=== PATIENT | female | born 1960 | race Caucasian/White ===

== ENCOUNTER 2017-08-22 14:37 | Outpatient (CLI) | payer BC ==
--- NOTE | 2017-08-22 16:01 | MRI ---
MRI LUMBAR SPINE WITHOUT CONTRAST: Date: 08/22/17 HISTORY: M48.061, degenerative lumbar spine stenosis. COMPARISON: None. FINDINGS: The kidneys are without hydronephrosis. The aortic contour is nonaneurysmal. Small retroperitoneal an d periaortic lymph nodes. Mild lower lumbar spine and paraspinal muscle atrophy at L4-5 and L5-S1. There are Modic Type II end plate changes at L1-2. Conus medullaris terminates at inferior L1 end césar te. There is increased posterior epidural fat narrowing the spinal canal. Levels are as follows: T12-L1: Mild circumferential disc space height loss. Mild facet arthropathy. No significant neural foraminal or spinal canal narrowing. Spinal canal measures 13.0 mm. L1-2: Moderate degenerative disc space height loss. Low grade circumferential disc bulge and disc osteophyt e complex. Spinal canal measures 9.0 mm. No significant neural foraminal narrowing. L2-3: There is mild disc desiccation. Circumferential disc bulge. Mild facet arthrosis. Increased posterior epidural fat. Spinal canal narrowed to approximately 8.0 mm. No significant neural foraminal narrowi ng. L3-4: Normal disc hydration. Mild facet arthropathy. Small left facet synovial cyst. The spinal canal measures approximately 6.0 mm, narrowed and predominantly due to increased posterior epidural fat. L4-5: Circumferential posterior disc osteophyte complex. Abnormal increased epidural fat. Moderate facet ar throsis with effusions. The spinal canal narrowed by 6.0 mm. There is moderate bilateral neural arabella inal narrowing. L5-S1: Abnormal increased anterior and posterior epidural fat. This narrows the spinal canal to approximatel y 6.0 mm. Disc is unremarkable. IMPRESSION: Multilevel spondylosis as described above with multilevel spinal canal narrowing, as well as narrowin g of the neural foramina at L4-5. There is a majority of narrowing due to increased epidural fat. POS: [facility]
== END 2017-08-22 14:38 | disposition home or self-care (01) ==
LOC: TBSIIMAG 14:37
PROVIDERS: ATTEND Neurological Surgery
DX: M47.12 Other spondylosis with myelopathy, cervical region (principal); M48.061 Spinal stenosis, lumbar region without neurogenic claudication; M99.83 Other biomechanical lesions of lumbar region
CPT/HCPCS: 72141; 72148

== ENCOUNTER 2017-09-08 16:05 | Outpatient (CLI) | payer BC ==
--- NOTE | 2017-09-08 22:40 | MRI ---
MRI OF THE CERVICAL SPINE WITHOUT CONTRAST: 09/08/17 COMPARISON: None. HISTORY: Cervical spondylosis and neck pain. TECHNIQUE: Multiplanar and multisequence MR images were obtained of the cervical spine without contrast. FINDINGS: Generalized disc desiccation is seen. Mild end plate degenerative changes are seen in the lower cervi genet spine, most prominent in the superior end plate of C7. The visualized cord demonstrates normal si gnal throughout. The craniocervical junction is unremarkable. The prevertebral and paraspinal soft ti ssues are unremarkable. C2-3: Unremarkable. C3-4: Unremarkable. C4-5: A small disc osteophyte complex is seen. Mild bilateral posterior facet arthrosis. Mild bilater al neural foraminal stenosis. Mild central canal stenosis. C5-6: A small disc osteophyte complex is seen. Mild bilateral posterior facet arthrosis. Mild right a nd moderate left neural foraminal stenosis. Mild central canal stenosis. C6-7: A small disc osteophyte complex is seen. No posterior facet arthrosis. Mild central canal steno sis. Mild bilateral neural foraminal stenosis. C7-T1: Unremarkable. IMPRESSION: Degenerative changes of the cervical spine as above. POS: [facility]
== END 2017-09-08 16:06 | disposition home or self-care (01) ==
LOC: TBSIIMAG 16:05
PROVIDERS: ATTEND Neurological Surgery
DX: M47.892 Other spondylosis, cervical region (principal)
CPT/HCPCS: 72141

== ENCOUNTER 2018-08-11 13:07 | Outpatient (CLI) | payer BC ==
--- NOTE | 2018-08-11 15:55 | MRI ---
MRI CERVICAL SPINE WITHOUT CONTRAST: HISTORY: Cervical stenosis. Right arm, shoulder, and neck pain. COMPARISON: 09/08/2017 TECHNIQUE: An MRI of the cervical spine is performed without intravenous Gadolinium administration. Multisequen tial, multiplanar imaging is performed. FINDINGS: Persistent straightening of normal cervical lordosis. Appropriate T1 marrow signal intensity of the cervical vertebrae. Cervical spine vertebral body height is maintained. No fracture. Chronic Schmo rl's node along the superior endplate of C7. The visualized brain parenchyma, cervicomedullary junction, cervical cord, and upper thoracic cord perry ve normal size and signal intensity. C2-C3: No significant central canal stenosis or foraminal narrowing. C3-C4: No significant central canal stenosis or neural foraminal narrowing. C4-C5: Broad-based disk osteophyte complex abuts the thecal sac. The ventral subarachnoid space is maintained. Mild central canal stenosis. Mild bilateral foraminal narrowing due to uncovertebral hy pertrophy. C5-C6: Broad-based disk osteophyte complex abuts the thecal sac. The ventral subarachnoid space is maintained. Mild central canal stenosis. Hypertrophic changes in both uncovertebral joints results in mild right and mild to moderate left foraminal narrowing. C6-C7: Broad-based disk osteophyte complex abuts the thecal sac. The ventral subarachnoid space is maintained. Mild central canal stenosis. The neural foramina are patent. C7-T1: No significant central canal stenosis or foraminal narrowing. IMPRESSION: 1. Degenerative changes of the cervical spine, as detailed above. When compared to the previous exa mination, no significant interval change. POS: [facility]
== END 2018-08-11 13:08 | disposition home or self-care (01) ==
LOC: TBSIIMAG 13:07
PROVIDERS: ATTEND Neurological Surgery
DX: M48.062 Spinal stenosis, lumbar region with neurogenic claudication (principal); M48.02 Spinal stenosis, cervical region; M47.812 Spondylosis without myelopathy or radiculopathy, cervical region
CPT/HCPCS: 72141; 72148

== ENCOUNTER 2021-01-03 15:38 | Day surgery (SDC) | payer BC ==
[2021-01-03] MEDS ORDERED: Phenylephrine 2.5% Ophth Soln 5 ML BOT ONE (16:10)
[2021-01-03] MEDS ORDERED: Cyclopentolate 1% Opth Drop 2 ML BOT ONE (16:10)
[2021-01-03] MEDS ORDERED: Acetaminophen 325 MG TAB ONE (16:10)
[2021-01-03] MEDS ORDERED: Cyclopentolate 1% Opth Drop 2 ML BOT FS SCH (16:15)
[2021-01-03] MEDS ORDERED: Phenylephrine 2.5% Ophth Soln 5 ML BOT FS SCH (16:15)
[2021-01-03] MEDS ORDERED: EPINEPHrine 0.3 MG in Ophthalmic Irrigation Solution 500 ML IRR SCH (16:15)
[2021-01-03] MEDS ORDERED: Midazolam HCl 2 mg/2 ml Vial ONE (19:36)
[2021-01-03] MEDS ORDERED: Fentanyl 100 MCG/2 ML VIAL ONE (19:36)
[2021-01-03] MEDS ORDERED: Triamcinolone 40 MG/ML VIAL ONE (20:03)
[2021-01-03] MEDS ORDERED: PROPOFOL 200 MG/20 ML VIAL ONE (20:03)
[2021-01-03] MEDS ORDERED: Lidocaine 1% PF 5 ML VIAL ONE (20:03)
[2021-01-03] MEDS ORDERED: Ondansetron PF 4 MG/2 ML Vial ONE (20:03)
[2021-01-03] MEDS ORDERED: PHENYLEPHRINE-NS 100 MCG/ML 10 ML SYRINGE ONE (20:03)
[2021-01-03] MEDS ORDERED: Lidocaine 4% PF 5 ML AMP ONE (20:03)
[2021-01-03] MEDS ORDERED: Maxitrol 0.1% Opth Oint 3.5 GM TUBE ONE (20:03)
[2021-01-03] MEDS ORDERED: Bupivacaine PF 0.75% SDV 10 ML ONE (20:03)
[2021-01-03] MEDS ORDERED: Dexamethasone 20 MG/5 ML VIAL ONE (20:03)
== END 2021-01-03 22:01 | disposition home or self-care (01) ==
LOC: SDC/OP 15:38
PROVIDERS: ATTEND Ophthalmology Retina Specialist
PROC: 08T43ZZ Resection of Right Vitreous, Percutaneous Approach (ICD-10-PCS; principal; 2021-01-03)
DX: H33.001 Unspecified retinal detachment with retinal break, right eye (principal); I10 Essential (primary) hypertension; F17.200 Nicotine dependence, unspecified, uncomplicated; J45.909 Unspecified asthma, uncomplicated; Z88.0 Allergy status to penicillin
CPT/HCPCS: 67025; J0171; J1100; J2250; J2405; J2704; J3010; J3301; J3490

== ENCOUNTER 2021-03-10 09:49 | Day surgery (SDC) | payer BC ==
[~2021-03-10 09:49] MED LIST: EPINEPHrine 0.3 MG in Ophthalmic Irrigation Solution 500 ML IRR SCH; Fentanyl 100 MCG/2 ML VIAL ONE; Midazolam HCl 2 mg/2 ml Vial ONE
[2021-03-10] MEDS ORDERED: Cyclopentolate 1% Opth Drop 2 ML BOT ONE (10:11)
[2021-03-10] MEDS ORDERED: Phenylephrine 2.5% Ophth Soln 5 ML BOT ONE (10:12)
[2021-03-10] MEDS ORDERED: Bupivacaine PF 0.75% SDV 10 ML ONE (11:40)
[2021-03-10] MEDS ORDERED: Lidocaine 4% PF 5 ML AMP ONE (11:40)
[2021-03-10] MEDS ORDERED: PROPOFOL 200 MG/20 ML VIAL ONE (11:40)
[2021-03-10] MEDS ORDERED: Triamcinolone 40 MG/ML VIAL ONE (11:40)
[2021-03-10] MEDS ORDERED: Maxitrol 0.1% Opth Oint 3.5 GM TUBE ONE (11:40)
== END 2021-03-10 13:40 | disposition home or self-care (01) ==
LOC: SDC 09:49
PROVIDERS: ATTEND Ophthalmology Retina Specialist
PROC: 08T43ZZ Resection of Right Vitreous, Percutaneous Approach (ICD-10-PCS; principal; 2021-03-10)
DX: H33.41 Traction detachment of retina, right eye (principal); Z88.0 Allergy status to penicillin
CPT/HCPCS: C1814; J0171; J2250; J2704; J3010; J3301; J3490